=== PATIENT | female | born 1995 | race Caucasian/White ===

== ENCOUNTER → 2021-03-25 | Outpatient (CLI) | payer BC ==
[2021-03-25 17:31] LABS: BASO # 0.04 (0.02-0.10); EOS # 0.28 (0.04-0.40); EOS % 2.1 % (1.0-5.0); HEMATOCRIT 39.1 % (37.0-47.0); HEMOGLOBIN 12.7 g/dL (12.5-16.0); LYMPH# 2.58 (1.50-4.00); MEAN CELL VOLUME 83 fl (78-100); MEAN CORPUSCULAR HEMOGLOBIN 27 pg (27-31); MEAN CORPUSCULAR HGB CONC 33 g/dL (33-37); MEAN PLATELET VOLUME 8.9 fl (7.4-10.4); MONO # 0.72 (0.20-0.80); NEU # 9.74 (1.40-6.50); PLATELET COUNT 311 K/mm3 (130-400); RED CELL DISTRIBUTION WIDTH 13.2 % (11.5-14.5); WHITE BLOOD COUNT 13.4 K/mm3 (4.8-10.8)
[2021-03-25 17:40] LABS: ALBUMIN 4.2 g/dL (3.5-5.0)
[2021-03-25 17:41] LABS: CALCIUM 9.7 mg/dL (8.3-10.5)
[2021-03-25 17:43] LABS: TOTAL PROTEIN 7.5 g/dL (6.4-8.3)
[2021-03-25 17:44] LABS: TOTAL BILIRUBIN 0.5 mg/dL (0.2-1.2)
== END ==
LOC: LAB 17:17
DX: F41.1 Generalized anxiety disorder (principal); F31.9 Bipolar disorder, unspecified; Z79.899 Other long term (current) drug therapy

== ENCOUNTER 2021-07-16 09:55 | Emergency (ER) | payer OTHER, BC ==
[~2021-07-16] VITALS: Ht 160 cm; Wt 100.9 kg
[2021-07-16] MEDS ORDERED: BUSPIRONE5 MG PO (10:19)
[2021-07-16] MEDS ORDERED: DESYREL 100MG100 MG PO (10:19)
[2021-07-16] MEDS ORDERED: ESKALITH C450 MG/TAB PO (10:19)
[2021-07-16] MEDS ORDERED: OLANZAPINE5 M3 PO (10:20)
[2021-07-16] MEDS ORDERED: PROZAC20 M1 PO (10:20)
[2021-07-16 11:21] VITALS: BP 116/60
== END 2021-07-16 11:21 | disposition home or self-care (01) ==
LOC: ED 09:55
DX: S06.0X0A Concussion without loss of consciousness, initial encounter (principal); W20.8XXA Other cause of strike by thrown, projected or falling object, initial encounter; Y92.59 Other trade areas as the place of occurrence of the external cause; Y99.0 Civilian activity done for income or pay